=== PATIENT | male | born 1945 | race Caucasian/White ===

== ENCOUNTER 2022-09-21 18:18 | Emergency (ER) | payer OTHER, SELFPAY ==
[2022-09-21 18:36] VITALS: BP 135/64; PULSE 73; RESP 18; TEMP 37; O2SAT 100; BMI 26.6
[2022-09-21] MEDS: PROPARACAINE 0.5% OPHTH SOL 1 DROPS EYE-RIGHT (21:21)
[2022-09-21] MEDS: FLUORESCEIN 1 MG STRIP EYE-BOTH (21:21)
--- NOTE | 2022-09-21 21:24 | ED.GENADULT ---
HPI - General Adult General Chief complaint: Eye Problems Stated complaint: Left eye redness, Got hit by [employer] ribbon Time Seen by Provider: 09/21/22 20:46 Source: patient Mode of arrival: Ambulatory History of Present Illness HPI narrative: Patient is a 77-year-old male who is here for evaluation of an injury to his left eye. States he was wearing a face shield. He states he was using a weed whacker. He states that part of the string came off and he thinks went under the facial that he was wearing and hit himself in the left eye. He is not having any vision changes. No pain. No foreign body sensation. No other injuries from the event. Related Data Previous Rx's Medication Instructions Recorded erythromycin 5 mg/gram (0.5 %) eye 0.5 inch EYE-LEFT TID 2 days #3.5 09/21/22 ointment grams Review of Systems Eyes Eyes: Reports system reviewed and no additional complaints, except as documented ENT Ears, Nose, Mouth, and Throat: Reports system reviewed and no additional complaints, except as documented Integumentary/Breasts Skin/Breast: Reports system reviewed and no additional complaints, except as documented Neurologic Neurologic: Reports system reviewed and no additional complaints, except as documented Hematologic/Lymphatic On Anticoagulants: No Patient History Social History Smoking Status: Never smoker Smoking Status: Never smoker alcohol intake frequency: 0-2 drinks per day Substance Use Type: does not use Exam Initial Vital Signs Initial Vital Signs: Vital Signs Temperature 98.6 F 09/21/22 18:36 Pulse Rate 73 09/21/22 18:36 Respiratory Rate 18 09/21/22 18:36 Blood Pressure 135/64 09/21/22 18:36 Pulse Oximetry 100 09/21/22 18:36 Oxygen Delivery Method Room Air 09/21/22 18:36 Eyes Other: Right eye is unremarkable. Left eye he does have a subconjunctival hemorrhage that seems to be localized on the nasal aspect and inferior aspect. Pupils are equal and reactive. A small amount of fluorescein uptake on the medial aspect that the 9 o'clock aspect. No foreign body noted. No hyphema noted. Extraocular movements intact Skin General: no rashes or lesions noted Course Orders Ordered: Discontinued Medications Erythromycin (Erythromycin Ophth 1 Gm Oint) 1 applic EYE-LEFT NOW ONE Stop: 09/21/22 21:27 Last Admin: 09/21/22 21:43 Dose: 1 applic Documented By: CRISTHIAN Fluorescein Sodium (Fluorescein 1 Mg Strip) 1 mg EYE-BOTH NOW ONE Stop: 09/21/22 20:54 Last Admin: 09/21/22 21:21 Dose: 1 mg Documented By: BS Proparacaine HCl (Proparacaine 0.5% Ophth Kamryn) 1 drops EYE-RIGHT NOW ONE Stop: 09/21/22 20:54 Last Admin: 09/21/22 21:21 Dose: 1 drop Documented By: BS Vital Signs Vital signs: Vital Signs - 8 hr 09/21/22 18:36 Temperature 98.6 F Pulse Rate 73 Respiratory Rate 18 Blood Pressure 135/64 Pulse Oximetry 100 Oxygen Delivery Method Room Air Medical Decision Making MDM Narrative Medical decision making narrative: Subconjunctival hemorrhage noted with a unable abrasion. Low suspicion for open globe. No foreign body noted. Will place the patient on erythromycin ointment. Visual acuity is noted. Patient was discharged home with return precautions. He expressed understanding and agreement. Discharge Plan Departure Patient Disposition: Home Clinical Impression: Subconjunctival hemorrhage, Corneal abrasion Instructions: DI for Corneal Abrasion, DI for Subconjunctival Hemorrhage Activity Restrictions/Additional Instructions: Please use the erythromycin ointment as directed. The redness that is around your eye should improve in the next 10-14 days. Contact your primary doctor for a follow-up. Return to the emergency department for new or worsening symptoms. Prescriptions: New erythromycin 5 mg/gram (0.5 %) ointment 0.5 inch EYE-LEFT TID 2 Days Qty: 3.5 1RF Stand Alone Forms: Patient Portal/API
[2022-09-21] MEDS: ERYTHROMYCIN OPHTH 1 GM OINT 1 APPLIC EYE-LEFT (21:43)
== END 2022-09-21 21:44 | disposition home or self-care (01) ==
PROVIDERS: Emergency Provider Emergency Medicine
DX: H11.32 Conjunctival hemorrhage, left eye (principal); S05.00XA Injury of conjunctiva and corneal abrasion without foreign body, unspecified eye, initial encounter; W22.8XXA Striking against or struck by other objects, initial encounter
CPT/HCPCS: 99282